=== PATIENT | male | born 1930 | race Caucasian/White ===

== ENCOUNTER 2022-02-06 13:59 | Inpatient (IN) ==
[2022-02-06] MEDS ORDERED: Naloxone 0.4 MG/ML INJ IVP PRN (17:01)
[2022-02-06] MEDS ORDERED: MOM Conc 10 ML UD.LIQ PO PRN (17:01)
[2022-02-06] MEDS ORDERED: Mag Hydrox/Al Hydrox/Simeth 30 ML UDC PO PRN (17:01)
[2022-02-06] MEDS ORDERED: Ondansetron ODT 4 MG TAB.RAPDIS SL PRN (17:01)
[2022-02-06] MEDS ORDERED: Melatonin 3 MG TABLET PO PRN (17:01)
[2022-02-06] MEDS: *HR* HYDROmorphone (PF) 1 MG/ML SYRINGE IVP PRN (17:24)
[2022-02-06] MEDS: *HR* OxyCODONE Immed Rel 5 MG TABLET PO PRN (22:32)
[2022-02-07] MEDS ORDERED: 0.9 % Sodium Chloride 1,000 ML IVC SCH (00:01)
[2022-02-07] MEDS: *HR* HYDROmorphone (PF) 1 MG/ML SYRINGE IVP PRN (01:58)
[2022-02-07] MEDS: *HR* OxyCODONE Immed Rel 5 MG TABLET PO PRN (05:01)
[2022-02-07] MEDS ORDERED: *HR* Enoxaparin 40 MG/0.4 ML SYRINGE SQ SCH (06:00)
[2022-02-07] MEDS ORDERED: Famotidine 20 MG/2 ML VIAL IVP ONE (07:00)
[2022-02-07] MEDS ORDERED: CeFAZolin Syr 2,000MG/20 ML 2,000 MG/20 ML SYRINGE IVPB ONE (07:17)
[2022-02-07] MEDS ORDERED: Ringers Solution, Lactated 1,000 ML IVC SCH (07:30)
[2022-02-07] MEDS ORDERED: Ondansetron 4 MG/2 ML VIAL ONE (07:36)
[2022-02-07] MEDS ORDERED: *HR* FentaNYL (PF) 100 MCG/2 ML VIAL ONE (07:36)
[2022-02-07] MEDS ORDERED: Lidocaine -MPF 2% 2 ML VIAL ONE (07:36)
[2022-02-07] MEDS ORDERED: *HR* Propofol 200 MG/20 ML VIAL IVP ONE (07:36)
[2022-02-07] MEDS ORDERED: Famotidine 20 MG/2 ML VIAL ONE (07:37)
[2022-02-07] MEDS ORDERED: *HR* Rocuronium Bromide 50 MG/5 ML VIAL ONE (07:42)
[2022-02-07] MEDS ORDERED: *HR* Succinylcholine 200 MG/10 ML VIAL IVP ONE (07:42)
[2022-02-07] MEDS: Acetaminophen IV 1,000 MG/100 ML BAG IVPB ONE ×2 (07:50→08:04)
[2022-02-07] MEDS ORDERED: Tranexamic Acid 1,000 MG/10 ML VIAL ONE (09:04)
[2022-02-07] MEDS ORDERED: *HR* Labetalol 20 MG/4 ML SYRINGE IVP ONE (09:21)
[2022-02-07] MEDS ORDERED: *HR* OxyCODONE Immed Rel 5 MG TABLET PO PRN (09:31)
[2022-02-07] MEDS ORDERED: *HR* HYDROmorphone PF 0.5 MG/0.5 ML SYRINGE IVP PRN (09:31)
[2022-02-07] MEDS ORDERED: Acetaminophen 325 MG TABLET PO PRN (11:33)
[2022-02-07] MEDS ORDERED: *HR* HYDROcodone/Acet 5/325 mg TABLET PO PRN (11:33)
[2022-02-07 11:35] LABS: Eosinophils % 0.1 %; Hematocrit 30.8 % (37.5-50.1); Hemoglobin 10.6 g/dL (12.9-16.9); Immature Granulocytes % 0.4 % (0-4); Lymphocytes # 0.6 K/mcL (0.6-4.6); Lymphocytes % 5.1 %; Mean Corpuscular HGB Conc 34.4 g/dL (31.6-35.5); Mean Corpuscular Hemoglobin 33.5 pg (28.0-33.3); Mean Corpuscular Volume 97.5 fL (83.0-100.0); Mean Platelet Volume 9.6 fL (9.4-12.4); Monocytes # 0.5 K/mcL (0.0-1.3); Neutrophils # 10.4 K/mcL (1.6-8.9); Platelet Count 130 K/mcL (140-400); Red Blood Count 3.16 M/mcL (4.19-5.50); Red Cell Distribution Width 11.9 % (11.5-14.5); Segmented Neutrophils % 90.4 %; White Blood Count 11.5 K/mcL (4.3-11.1)
[2022-02-07 11:57] LABS: Potassium 4.5 mEq/L (3.5-5.1)
[2022-02-07] MEDS: CeFAZolin 2 GM/120 ML BAG IVPB SCH ×2 (16:28→23:54)
[2022-02-08 04:59] LABS: Basophils % 0.2 %; Eosinophils % 0.1 %; Hematocrit 25.8 % (37.5-50.1); Hemoglobin 9.1 g/dL (12.9-16.9); Immature Granulocytes % 0.5 % (0-4); Lymphocytes # 1.5 K/mcL (0.6-4.6); Lymphocytes % 12.3 %; Mean Corpuscular HGB Conc 35.3 g/dL (31.6-35.5); Mean Corpuscular Hemoglobin 33.7 pg (28.0-33.3); Mean Corpuscular Volume 95.6 fL (83.0-100.0); Mean Platelet Volume 10.2 fL (9.4-12.4); Monocytes # 1.2 K/mcL (0.0-1.3); Monocytes % 10.2 %; Platelet Count 108 K/mcL (140-400); Red Cell Distribution Width 11.9 % (11.5-14.5); Segmented Neutrophils % 76.7 %; White Blood Count 11.8 K/mcL (4.3-11.1)
[2022-02-08 05:23] LABS: Calcium 7.7 mg/dL (8.6-10.3); Potassium 4.2 mEq/L (3.5-5.1)
[2022-02-08] MEDS: Apixaban 5 MG TABLET PO SCH ×2 (10:08→19:23)
[2022-02-08] MEDS ORDERED: amLODIPine 5 MG TABLET PO SCH (11:30)
[2022-02-08 16:14] VITALS: BP 140/71; PULSE 81; TEMP 98.1; O2SAT 97
[2022-02-09] MEDS ORDERED: Aspirin Enteric Coated 81 MG Tablet PO SCH (09:00)
== END 2022-02-08 23:59 | disposition other institution (70) | DRG 481 ==
LOC: 4WAOSI → SUATTDRO 17:01
PROVIDERS: ADMIT Internal Medicine; ATTEND Registered Nurse